=== PATIENT | female | born 1980 | race Caucasian/White ===

== ENCOUNTER 2018-08-26 13:11 | Emergency (ER) | payer OTHER ==
--- NOTE | 2018-08-26 15:37 | UC ---
Skin Complaint HPI - HPI Summary HPI Summary: Pt presents with c/o of right outer ear pain, swelling, erythema and blisters on outer auricle. Pt has hx of oral herpes simplex and had chicken pox as a child. Pt reports that her right outer ear was painful then began to swell then blisters developed - History of Current Complaint Time Seen by Provider: 08/26/18 15:26 Stated Complaint: SWOLLEN EAR Hx Obtained From: Patient Hx Last Menstrual Period: 04/01/16 ?: No Onset/Duration: Sudden Onset Skin Exposure Onset/Duration: Days Ago Timing: Constant Onset Severity: Mild Current Severity: Moderate Location: Ear (Right) Character: Pain, Redness, Raised, Painful Aggravating Factor(s): Touch Alleviating Factor(s): Nothing Associated Signs & Symptoms: Positive: Rash, Tenderness - Allergy/Home Medications Allergies/Adverse Reactions: Allergies Allergy/AdvReac Type Severity Reaction Status Date / Time No Known Allergies Allergy Verified 08/26/18 15:46 Review of Systems Constitutional: Negative Skin: Rash Eyes: Negative ENT: Negative Respiratory: Negative Cardiovascular: Negative Gastrointestinal: Negative Genitourinary: Negative Motor: Negative Neurovascular: Negative Musculoskeletal: Negative Neurological: Negative Psychological: Negative Is Patient Immunocompromised?: No All Other Systems Reviewed And Are Negative: Yes PMH/Surg Hx/FS Hx/Imm Hx Previously Healthy: Yes - Surgical History Surgical History: Yes Surgery Procedure, Year, and Place: 2 C- Sections - Family History Known Family History: Positive: Cardiac Disease - Social History Occupation: Works From/At Home Lives: With Family Alcohol Use: None Substance Use Type: None Smoking Status (MU): Heavy Every Day Tobacco Smoker Have You Smoked in the Last Year: Yes - Immunization History Vaccination Up to Date: Yes Physical Exam Triage Information Reviewed: Yes Appearance: Well-Appearing Vital Signs Reviewed: Yes Eye Exam: Normal ENT: Positive: Other - right upper outer auricle swelling tenderness, intact vessicle clear fluid filled Dental Exam: Normal Neck exam: Normal Neck: Positive: Tenderness @ - right post auricular, Enlarged Nodes @ Respiratory Exam: Normal Cardiovascular Exam: Normal Musculoskeletal Exam: Normal Neurological Exam: Normal Psychological Exam: Normal Skin: Positive: rashes - vessicular, erythema, swelling right outer ear Course/Dx - Differential Diagnoses - Skin Complaint Differential Diagnoses: Cellulitis, Varicella Zoster - Diagnoses Provider Diagnoses: herpes zoster right ear Discharge - Sign-Out/Discharge Documenting (check all that apply): Patient Departure All imaging exams completed and their final reports reviewed: No Studies - Discharge Plan Condition: Stable Disposition: HOME Prescriptions: ValACYclovir (*) [Valtrex 1 GM(*)] 1 gm PO Q8H #21 tab Patient Education Materials: Lorrie (ED) Referrals: [facility] [Outside] - If Needed No Primary Care Phys,NOPCP [Primary Care Provider] - - Billing Disposition and Condition Condition: STABLE Disposition: Home
[2018-08-26 15:46] VITALS: BP 120/73
== END 2018-08-26 15:49 | disposition home or self-care (01) ==
LOC: UCCORT 13:11
DX: B02.9 Zoster without complications (principal); F17.210 Nicotine dependence, cigarettes, uncomplicated
CPT/HCPCS: 99212; G0463

== ENCOUNTER 2018-09-09 17:37 | Emergency (ER) | payer OTHER ==
[2018-09-09 17:57] VITALS: BP 127/64
[2018-09-09] MEDS ORDERED: predniSONE TAB* 20 MG PO ONE (18:06)
[2018-09-09] MEDS ORDERED: Sulfamethox/Trimethoprim DS 800/160* TAB PO ONE (18:06)
[2018-09-09] MEDS ORDERED: Albuterol HFA INHALER* 8 gm MDI INH ONE (18:06)
--- NOTE | 2018-09-09 18:06 | UC ---
Respiratory Complaint HPI - HPI Summary HPI Summary: C/O 4-5 day history of congestion, cough with wheezing and sinus pain. Smoker. Chills. - History of Current Complaint Chief Complaint: UCRespiratory Stated Complaint: COUGH, TROUBLE BREATHING W/ HX OF ASTHMA x3 days Hx Obtained From: Patient Hx Last Menstrual Period: 08/31/18 ?: No Onset/Duration: Sudden Onset, Still Present, Worse Since - today Timing: Constant Severity Initially: Mild Severity Currently: Moderate Pain Intensity: 7 Character: Cough: Productive Aggravating Factors: Deep Breaths, Recumbent Position Associated Signs And Symptoms: Positive: Chills, Wheezing, URI, Nasal Congestion , Sinus Discomfort - Allergies/Home Medications Allergies/Adverse Reactions: Allergies Allergy/AdvReac Type Severity Reaction Status Date / Time No Known Allergies Allergy Verified 09/09/18 17:49 Home Medications: Home Medications Naltrexone INJ [Vivitrol INJ] 380 mg IM MONTHLY 09/09/18 [History Confirmed ] PMH/Surg Hx/FS Hx/Imm Hx Respiratory History: Asthma - Surgical History Surgical History: Yes Surgery Procedure, Year, and Place: 2 C- Sections - Family History Known Family History: Positive: None, Cardiac Disease Negative: Diabetes - Social History Occupation: Employed Full-time Lives: With Family Alcohol Use: None Alcohol Amount: RECOVERING ALCOHOLIC Substance Use Type: None Smoking Status (MU): Heavy Every Day Tobacco Smoker Type: Cigarettes Amount Used/How Often: 1 PPD Have You Smoked in the Last Year: Yes - Immunization History Vaccination Up to Date: Yes Review of Systems Constitutional: Chills ENT: Sore Throat, Nasal Discharge, Sinus Congestion Respiratory: Shortness Of Breath, Cough Is Patient Immunocompromised?: No All Other Systems Reviewed And Are Negative: Yes Physical Exam Triage Information Reviewed: Yes Appearance: No Pain Distress, Well-Nourished, Ill-Appearing Vital Signs: Initial Vital Signs Temp 98.5 F 09/09/18 17:50 Pulse 83 09/09/18 17:50 Resp 18 09/09/18 17:50 BP 127/64 09/09/18 17:50 Pulse Ox 99 09/09/18 17:50 Vital Signs Reviewed: Yes Eyes: Positive: Conjunctiva Inflamed ENT: Positive: Pharynx normal, Nasal congestion, TMs normal Neck exam: Normal Respiratory: Positive: Wheezing - diffuse expiratory wheezes Cardiovascular Exam: Normal Musculoskeletal Exam: Normal Neurological Exam: Normal Psychological Exam: Normal Skin Exam: Normal UC Diagnostic Evaluation - Laboratory O2 Sat by Pulse Oximetry: 99 Respiratory Course/Dx - Differential Dx/Diagnosis Differential Diagnosis/HQI/PQRI: Asthma, Lower Resp Infection, Sinusitis Provider Diagnoses: Acute URI. Acute sinusitis. Acute bronchospasm. Smoking Discharge - Sign-Out/Discharge Documenting (check all that apply): Patient Departure All imaging exams completed and their final reports reviewed: No Studies - Discharge Plan Condition: Stable Disposition: HOME Prescriptions: Albuterol HFA INHALER* [Ventolin HFA Inhaler*] 2 puff INH Q6H PRN #18 gm PRN Reason: Wheezing predniSONE TAB* [Deltasone 20 MG TAB*] 60 mg PO DAILY #18 tab Sulfamethox/Trimethoprim DS* [Bactrim DS 800/160 TAB*] 1 tab PO BID #20 tab Patient Education Materials: Sulfamethoxazole/Trimethoprim (By mouth), Prednisone (By mouth), Sinusitis (ED), Bronchospasm (ED) Referrals: No Primary Care Phys,NOPCP [Primary Care Provider] - Additional Instructions: Smoking Cessation Tricks. 1. Cut down by 1 cigarette per day every 2-3 days. Write the number of smokes for that day on the calendar. 2. Identify triggers to smoking: after meals, on the phone, in the car, with coffee, on breaks at work, etc. 3. Formulate a plan with a behavior to replace the smoking. Fireballs in the car , doodle pad on the phone, flavored creamer for the coffee, go for a walk after a meal or on break at work. 4. For stress smokes do deep breathing relaxation. Breath deep in through the nose hold the breath in for a few seconds then breath out slowly through the mouth. - Billing Disposition and Condition Condition: STABLE Disposition: Home
== END 2018-09-09 18:29 | disposition home or self-care (01) ==
LOC: UCCORT 17:37
DX: J06.9 Acute upper respiratory infection, unspecified (principal); J01.90 Acute sinusitis, unspecified; J98.01 Acute bronchospasm; F17.210 Nicotine dependence, cigarettes, uncomplicated
CPT/HCPCS: 99213; A9270-GY; G0463; J7512